=== PATIENT | male | born 1985 | race Caucasian/White ===

== ENCOUNTER 2017-11-06 15:40 | Emergency (ER) | payer OTHER ==
[2017-11-06] MEDS ORDERED: methylPREDNISolone SOD SUCC 125 MG/2 ML VIAL IVP ONE (15:53)
[2017-11-06] MEDS ORDERED: NS 1,000 ML IV ONE (15:53)
[2017-11-06] MEDS ORDERED: RANITIDINE 50 MG/2 ML VIAL IVP ONE (15:53)
[2017-11-06] MEDS ORDERED: methylPREDNISolone SOD SUCC 125 MG/2 ML VIAL ONE (15:53)
[2017-11-06] MEDS ORDERED: ALBUTEROL 3 ML DEYVIAL IH ONE (15:53)
[2017-11-06] MEDS ORDERED: FAMOTIDINE 20 MG TAB ONE (15:54)
--- NOTE | 2017-11-06 15:55 | EDPHY ---
HPI/HX/ROS/PE/MDM Narrative: CHIEF COMPLAINT: Allergic reaction HISTORY OF PRESENT ILLNESS: The patient is a 32 y/o male arriving via EMS for an allergic reaction. He was hiking above [place] when he stepped in either a wasp or hornets nest on the ground and was stung 4 to 6 times. He noticed he could hear his heart beating fast in his ears. He then developed itchiness throughout his body and his face began to swell. His friends drove him to [place] hoping to find medical care. When none could be found, EMS was summoned. In route, he received IM epinephrine 0.3ml of 1:1000 and 25 mg Benadryl. He has associated anxiety. He denies shortness of breath, throat swelling, or any other associated symptoms. He has previously had a similar reaction to ground wasps but does not carry an epi pen. No fever, chills, chest pain, shortness of breath, palpitations, vomiting, diarrhea, urinary complaints, headache, lightheadedness. REVIEW OF SYSTEMS: Aside from elements discussed in the HPI, a comprehensive 10-point review of systems was reviewed and is negative. PAST MEDICAL HISTORY: Allergic reaction to ground wasps SOCIAL HISTORY: From [place], here with friendsoniel VITAL SIGNS: Reviewed by me GENERAL: Well-developed, well-nourished, obvious facial swelling, diffuse erythroderma and hives are visible. No respiratory distress noted. HEENT: Atraumatic. Eyes: No icterus, no injection. Mouth: Angioedema of the uvula. Moist mucous membranes. No erythema or lesions. Neck: supple with no adenopathy. LUNGS: Slightly diminished breath sounds but clear bilaterally, no wheezes, rhonchi or rales. CARDIAC: Regular rate and rhythm, no rubs, murmurs or gallops. ABDOMEN: Soft, nontender, nondistended, bowel sounds normal. BACK: No CVA tenderness. EXTREMITIES: No trauma. No edema. Range of motion is normal throughout. NEURO: Alert and oriented, grossly nonfocal. SKIN: Diffuse urticaria, worse on back, abdomen, and chest. Warm and dry. PSYCHIATRIC: Normal mentation, no agitation. ED Course: The patient presents with facial swelling, global urticaria, and angioedema following bee or wasp stings. He is aware of this allergy but does not carry an epipen. EMS administered 25 mg Benadryl and epinephrine. Plan for 25 mg Benadryl , 125mg Solu-Medrol, 50 mg Zantac, albuterol nebulizer treatment, and 1 L NS fluid. 5:30 PM - I reassessed the patient and found his condition improved. Angioedema has resolved on the uvula. Urticaria has significantly resolved. Patient's facial swelling has greatly diminished. He is moving air well. No stridor. No wheezes. I feel he is safe for discharge. He agrees to this course of action. Follow up instructions and return precautions given. Patient encouraged to fill his prescriptions for EpiPen as well as for prednisone. MDM: Differential diagnoses for the patient's symptom complex was considered including but not limited to allergic reaction, urticaria, anaphylaxis, hereditary angioedema, drug-induced reaction. - Data Points Medications Given: Discontinued Medications Albuterol (Proventil Neb) 3 ml IH EDNOW ONE Stop: 11/06/17 15:54 Last Admin: 11/06/17 16:05 Dose: 3 ml Diphenhydramine HCl (Benadryl Injection) 25 mg IVP EDNOW ONE Stop: 11/06/17 15:54 Last Admin: 11/06/17 15:58 Dose: 25 mg Sodium Chloride (Ns) 1,000 mls @ 0 mls/hr IV ONCE ONE; Wide Open PRN Reason: Protocol Stop: 11/06/17 15:54 Last Admin: 11/06/17 16:05 Dose: 1,000 mls Methylprednisolone Sodium Succinate (Solu-Medrol) 125 mg IVP EDNOW ONE Stop: 11/06/17 15:54 Last Admin: 11/06/17 15:58 Dose: 125 mg Ranitidine HCl (Zantac) 50 mg IVP EDNOW ONE Stop: 11/06/17 15:54 Last Admin: 11/06/17 16:05 Dose: 50 mg General Time Seen by Provider: 11/06/17 15:41 Initial Vital Signs: Initial Vital Signs Temperature (C) 37 C 11/06/17 15:48 Heart Rate 88 11/06/17 15:48 Respiratory Rate 18 11/06/17 15:48 Blood Pressure 115/71 11/06/17 15:48 O2 Sat (%) 98 11/06/17 15:48 O2 Delivery Mode Room Air Allergies/Adverse Reactions: bee venom protein (honey bee) Allergy (Verified 11/06/17 15:50) Home Medications: Medication Instructions Recorded EPINEPHrine [Epipen 0.3 MG] 0.3 mg IM ONCE #2 syr 11/06/17 hydrOXYzine HCL [Vistaril] 10 mg PO Q8 PRN #15 tab 11/06/17 predniSONE 40 mg PO DAILY #6 tab 11/06/17 Departure - Departure Disposition: Home, Routine, Self-Care Clinical Impression: Allergic reaction Qualifiers: Encounter type: initial encounter Qualified Code(s): T78.40XA - Allergy, unspecified, initial encounter Condition: Good Instructions: Urticaria (ED), General Allergic Reaction (ED) Additional Instructions: 1. Please fill your prescription for EpiPen. Place one in your car or other common place. Carry one with you at all times. 2. Follow up with your primary care provider for continued symptoms. 3. Return to the emergency department for any worsening of condition including difficulty breathing, facial swelling, chest pain, and shortness of breath. There are 4 medications used to treat acute allergic reactions. #1. The first is epinephrine. Please use the epinephrine pen in the future as needed if you develops acute swelling, throat tightness, shortness of breath, or severe rash in the setting of allergic reaction. #2. The second type of medication are antihistamines. The most common antihistamine is diphenhydramine (Benadryl). Dose is 25-50 mg every 6-8 hours as needed for itching and rash. Diphenhydramine can be sedating. I have also given you a prescription for vistaril. You can use this in place of benadryl if it helps with itching better than the diphenhydramine. Another type of antihistamine is loratadine (Claritin). This is taken once a day. It is not sedating. Repeat doses of antihistamines may be needed as the hives will come and go over the next several days. You may notice that the hives are worse after exposure to heat, warm showers, or exertion. #3. The third medication is an H2 kalee. Tagamet, Zantac, Ranitidine, Pepcid are all H2 blockers. Please obtain this [id number]. Please take this on a regular basis for the next 3-4 days to help with the itching and hives. #4. The fourth medication is prednisone, which is a steroid. The dose is 40 mg a day x3 doses. Please take this as instructed. #5. Return to emergency department or seek care urgently if severe shortness of breath develops, swelling of the lips, eyelids, or sensation that the throat is closing. Please follow up with your primary care physician as needed. In the future, to treat your cold induced urticaria, you could take a nonsedating antihistamine prior to cold exposure. Referrals: NONE *PRIMARY CARE P,. [Primary Care Provider] - As per Instructions Prescriptions: EPINEPHrine [Epipen 0.3 MG] 0.3 mg IM ONCE #2 syr hydrOXYzine HCL [Vistaril] 10 mg PO Q8 PRN #15 tab PRN Reason: Itching predniSONE 40 mg PO DAILY #6 tab Report Scribed for: Jeanette Vallejo Report Scribed by: Carmela Carrero Date of Report: 11/06/17 Time of Report: 15:57 Physician Review and Approval Statement: Portions of this note were transcribed by a medical insurance clerk. I personally performed a history, physical exam, medical decision making, and confirmed accuracy of information the transcribed note.
[2017-11-06 17:58] VITALS: BP 127/73
== END 2017-11-06 17:55 | disposition home or self-care (01) ==
DX: T78.40XA Allergy, unspecified, initial encounter (principal); E86.9 Volume depletion, unspecified
CPT/HCPCS: 96374; J1200; J2780; J2930; J7613